=== PATIENT | male | born 1960 | race Caucasian/White ===

== ENCOUNTER 2018-08-24 08:58 | Outpatient (CLI) | payer OTHER | END 2018-08-24 23:59 | disposition home or self-care (01) | LOC: CARD 08:58 | PROVIDERS: ATTEND Internal Medicine | DX: R56.9 Unspecified convulsions (principal); F41.9 Anxiety disorder, unspecified; I10 Essential (primary) hypertension; E78.5 Hyperlipidemia, unspecified; F32.9 Major depressive disorder, single episode, unspecified; Z79.899 Other long term (current) drug therapy | CPT/HCPCS: 95819 ==